=== PATIENT | female | born 1975 | race Caucasian/White ===

== ENCOUNTER 2019-10-10 13:58 | Inpatient (IN) | payer OTHER ==
[~2019-10-10] VITALS: Ht 160 cm; Wt 79.6 kg
[~2019-10-10 13:58] MED LIST: CHLORDIAZEPOXID10 M2 PO; HYDROCODONE BIT1 T11 PO; IBUPROFEN600 MG PO; MIRTAZAPINE15 M2 PO; NASAL SPRAY30 ML NS; NEURONTIN800 MG PO; SENNA DOCUSATE1 TAB PO; ZANTAC 150150 MG PO; ZYPREXA5 M1 PO
[2019-10-10 14:55] VITALS: BP 108/72
--- NOTE | 2019-10-10 14:55 | NUR ---
A 44, admitted to , under the services of INGRID Tidwell DO with a diagnosis of OPIATE AND ALCOHOL WITHDRAWAL. Chief complaint is OPIATE AND ALCOHOL WITHDRAWAL S/S.. Patient arrived via ambulatory from [place]. Monitor applied. Initial assessment completed. Vital signs taken and recorded. INGRID TIDWELL DO notified of admission to the unit. Orders received. See assessment for past medical history, medications and allergies. Patient and/or family oriented to unit. [facility] visitation policy reviewed. Clothing/patient valuable form completed. TATI ARIZMENDI
--- NOTE | 2019-10-10 15:10 | NUR ---
PATIENT MEETS [facility]. CINA=16, CIWA=20, CIWA(B) IS 30. PATIENT IS WANTING TO FOLLOW UP WITH [facility] FOR OUTPATIENT TREATMENT. BARRON WHELAN B.A. SEISMOGRAPH HELPER
[2019-10-10 15:48] LABS: BASO # 0.1 10*3/uL (0.0-0.1); EOS # 0.5 10*3/uL (0.0-0.4); EOS % 8.1 % (1.0-4.0); HEMATOCRIT 34.3 % (37.0-47.0); HEMOGLOBIN 9.2 g/dl (12.0-16.0); LYMPH # 1.2 10*3/uL (1.3-4.4); LYMPH % 18.3 % (27.0-41.0); MEAN CELL VOLUME 69.7 fl (81.0-99.0); MEAN CORPUSCULAR HGB 18.7 pg (27.0-31.0); MEAN CORPUSCULAR HGB CONC 26.8 g/dl (33.0-37.0); MEAN PLATELET VOLUME 10.6 fl (9.6-12.3); MONO # 0.6 10*3/uL (0.1-1.0); MONO % 9.2 % (3.0-9.0); NEUT % 63.1 % (47.0-73.0); PLATELET COUNT AUTOMATED 253 10*3/uL (130-400); RED BLOOD COUNT 4.92 10*6/uL (4.10-5.10); RED CELL DISTRI WIDTH 21.2 % (0-14.5); WHITE BLOOD COUNT 6.3 10*3/uL (4.8-10.8)
[2019-10-10 15:58] LABS: URINE AMPHETAMINES < 1000 (1000ng/ml); URINE BARBITURATES < 200 (200ng/ml); URINE BENZODIAZEPINES < 200 (200ng/ml); URINE CANNABINOIDS (THC) > 50 (50ng/ml); URINE COCAINE > 300 (300ng/ml); URINE METHADONE < 300 (300ng/ml); URINE OPIATES > 300 (300ng/ml); URINE PHENCYCLIDINE < 25 (25ng/ml)
[2019-10-10 15:58] LABS: INTERNATIONAL NORM RATIO 0.9 (2.0-3.5)
[2019-10-10 16:00] VITALS: BP 107/60
[2019-10-10 16:01] LABS: BILIRUBIN NEGATIVE (NEGATIVE); BLOOD NEGATIVE (NEGATIVE); CLARITY CLEAR (CLEAR); COLOR YELLOW (YELLOW); GLUCOSE NEGATIVE (NEGATIVE); KETONE NEGATIVE (NEGATIVE); LEUKO ESTERASE NEGATIVE (NEGATIVE); NITRITE NEGATIVE (NEGATIVE); PH 6.5 (5.0-9.0); UROBILINOGEN 0.2 E.U./dl (0.2-1.0)
[2019-10-10 16:02] LABS: EPITHELIAL CELLS 21-30; WBC 0-2 wbc/hpf (0-5)
[2019-10-10 16:02] LABS: ALBUMIN 3.5 gm/dl (3.1-4.5); ALKALINE PHOSPHATASE 121 U/L (45-117); BUN 8 mg/dl (7-24); CHLORIDE 108 mmol/L (98-107); CREATININE 0.92 mg/dL (0.55-1.02); POTASSIUM 3.9 mmol/L (3.5-5.1); SGOT/AST 19 IU/L (3-35); SGPT/ALT 27 U/L (12-78); SODIUM 140 mmol/L (136-145); TOTAL PROTEIN 7.2 gm/dL (6.4-8.2)
[2019-10-10 16:13] LABS: BETA-HCG, QUANT < 1.0 mIU/mL (1-3); ETHYL ALCOHOL < 3.0 mg/dl (<3)
--- NOTE | 2019-10-10 16:27 | NUR ---
PT GIVEN IV ZOFRAN, BENTYL, AND VISTARIL FOR C/O NAUSEA, STOMACH CRAMPS, AND ANXIETY. WILL MONITOR FOR EFFECTIVENESS.
--- NOTE | 2019-10-10 17:18 | NUR ---
PT STATES THAT SHE IS HAVING INCREASED ANXIETY AND FEELS "SHAKY". ATIVAN 1 MG GIVEN VIA IV AT THIS TIME. WILL MONITOR FOR EFFECTIVENESS. MVI BAG INFUSING. PT SITTING UP IN BED WATCHING TELEVISION. PT STATES THAT SHE HAS ORDERED DINNER AND WILL TRY TO EAT SOMETHING ALTHOUGH SHE HAS A POOR APPETITE. WILL MONITOR. CALL LIGHT IN REACH, SAFETY MEASURES IN PLACE. PT ENCOURAGED TO USE CALL LIGHT FOR ANY NEEDS.
[2019-10-10] MEDS ORDERED: TOPIRAMATE50 M2 PO (17:41)
[2019-10-10] MEDS ORDERED: VENLAFAXINE HY150 M2 PO (17:41)
[2019-10-10] MEDS ORDERED: VRAYLAR1.5 MG PO (17:42)
[2019-10-10] MEDS ORDERED: PROVENTIL HFA6.7 GM INH (17:43)
[2019-10-10] MEDS ORDERED: GABAPENTIN600 MG PO (17:43)
--- NOTE | 2019-10-10 17:46 | NUR ---
PT MED REC UPDATED PER MEDICATION CLAIM HISTORY FROM [facility] P[facility]ED UP IN JUNE OF 2019. DR ALARCON AWARE OF THIS.
--- NOTE | 2019-10-10 18:29 | NUR ---
PT LETHARGIC AT THIS TIME. PT AROUSES EASILY BUT FALLS BACK TO SLEEP QUICKLY. RESPIRATIONS EASY AND UNLABORED. PT REFUSES TO TAKE SUBUTEX AND LIBRIUM SCHEDULED AT 1800. WILL CONTINUE TO MONITOR PT. ALL SAFETY MEASURES IN PLACE FOR PT. CALL LIGHT IN REACH. DR ALARCON NOTIFIED OF THIS.
[2019-10-10 20:00] VITALS: BP 108/67
[2019-10-11] VITALS: BP 100/50
--- NOTE | 2019-10-11 03:21 | NUR ---
24 HOUR CHART CHECK COMPLETE.
--- NOTE | 2019-10-11 06:50 | NUR ---
ATIVAN, MOTRIN, BENTYL, AND REQUIP ADMINISTERED AT THIS TIME FOR PT C/O ANXIETY/SHAKINESS, MUSCLE CRAMPS, GENERALIZED PAIN/DISCOMFORT AND STOMACH UPSET. WILL CONTINUE TO MONITOR.
[2019-10-11 07:41] VITALS: BP 150/56
--- NOTE | 2019-10-11 08:55 | NUR ---
Patient sleeping. Responding to scheduled medications with fewer complaints of pain and anxiety.
[2019-10-11 12:00] VITALS: BP 144/84
[2019-10-11 16:00] VITALS: BP 148/87
--- NOTE | 2019-10-11 16:30 | NUR ---
Patient resting. Responding to scheduled medications with fewer complaints of pain and anxiety.
--- NOTE | 2019-10-11 17:40 | NUR ---
PT GIVEN PO ROBAXIN AND BENTYL PER PRN ORDER FOR C/O MUSCLE ACHES AND STOMACH CRAMPS. WILL MONITOR EFFECTIVENESS.
[2019-10-11 20:00] VITALS: BP 156/95
--- NOTE | 2019-10-11 22:10 | NUR ---
TRAZADONE, REQUIP, AND MOTRIN ADMINISTERED AT THIS TIME. PT C/O GENERALIZED MUSCLE ACHES/CRAMPS. WILL MONITOR.
--- NOTE | 2019-10-11 23:21 | NUR ---
PT RESTING AT THIS TIME. NO SIGNS OF DISCOMFORT OR DISTRESS NOTED.
[2019-10-12] VITALS: BP 147/84
--- NOTE | 2019-10-12 07:59 | NUR ---
Patient resting. Responding to scheduled medications with fewer complaints of pain and anxiety.
[2019-10-12 08:00] VITALS: BP 158/86
--- NOTE | 2019-10-12 09:31 | NUR ---
PT GIVEN PO REQUIP, ROBAXIN AND BENTYL PER PRN ORDER FOR C/O RESTLESS LEGS, MUSCLE ACHES AND STOMACH CRAMPS. WILL MONITOR EFFECTIVENESS. CALL LIGHT WITHIN REACH.
--- NOTE | 2019-10-12 10:50 | NUR ---
Patient resting. Responding to scheduled medications with fewer complaints of pain and anxiety.
[2019-10-12 12:00] VITALS: BP 155/86
[2019-10-12 16:00] VITALS: BP 149/73
--- NOTE | 2019-10-12 18:00 | NUR ---
Patient displaying withdrawal symptoms, including: irritability, anxiousness, restlessness and agitation, complicated by impulsive behavior. Patient scores a 5 on the withdrawal scale. Scheduled/PRN medications provided, doctor notified of patient's agitation and AMA potential. Will continue to monitor medication effectiveness.
--- NOTE | 2019-10-12 19:48 | NUR ---
PATIENT RESTING IN BED. DENIES NEEDS. STATES SHE IS "VERY TIRED". LIBRIUM TAKEN WITHOUT DIFFICULTY. REMINDED TO NOT LEAVE THE FLOOR. VERBALIZED UNDERSTANDING. BED IN LOWEST POSITION, CALL LIGHT IN REACH
[2019-10-12 20:00] VITALS: BP 141/85
--- NOTE | 2019-10-12 21:35 | NUR ---
MEDICATED WITH PRN REQUIP FOR C/O RESTLESS LEGS. WILL MONITOR
[2019-10-13] VITALS: BP 146/83
[2019-10-13 06:20] LABS: BASO # 0.1 10*3/uL (0.0-0.1); BASO % 0.7 % (0.0-1.0); EOS # 0.1 10*3/uL (0.0-0.4); EOS % 0.7 % (1.0-4.0); HEMATOCRIT 42.2 % (37.0-47.0); HEMOGLOBIN 11.5 g/dl (12.0-16.0); LYMPH # 1.9 10*3/uL (1.3-4.4); LYMPH % 22.5 % (27.0-41.0); MEAN CORPUSCULAR HGB 18.3 pg (27.0-31.0); MEAN CORPUSCULAR HGB CONC 27.3 g/dl (33.0-37.0); MEAN PLATELET VOLUME 10.4 fl (9.6-12.3); MONO # 0.7 10*3/uL (0.1-1.0); MONO % 7.7 % (3.0-9.0); NEUT # 5.8 10*3/uL (2.3-7.9); NEUT % 68.2 % (47.0-73.0); PLATELET COUNT AUTOMATED 307 10*3/uL (130-400); RED CELL DISTRI WIDTH 22.1 % (0-14.5); WHITE BLOOD COUNT 8.5 10*3/uL (4.8-10.8)
[2019-10-13 06:25] LABS: CREATININE 0.94 mg/dL (0.55-1.02)
--- NOTE | 2019-10-13 07:30 | NUR ---
PT SET OFF BED ALARM AT THIS TIME. PATIENT VERY UNSTEADY GETTING TO BATHROOM. DIFFICULT TO UNDERSTAND WHEN TALKING. UPON ASSESSMENT, LUNGS CLEAR T/O, DENIES SOB, C/O SOME ABD CRAMPING, BSX4 QUADS. NO EDEMA. CALL LIGHT IS WITHIN REACH. NO FURTHER NEEDS AT THIS TIME. BED ALARM IN PLACE.
--- NOTE | 2019-10-13 09:30 | NUR ---
PATIENT C/O ABDOMINAL CRAMPING AT THIS TIME AND MEDICATED WITH PRN BENTYL PER ORDER. WILL MONITOR.
--- NOTE | 2019-10-13 10:44 | NUR ---
PT REFUSING TO WEAR ENDOSCOPE TECHNICIAN AT THIS TIME.
[2019-10-13 12:00] VITALS: BP 140/86
--- NOTE | 2019-10-13 13:10 | NUR ---
PATIENT LEAVING AGAINST MEDICAL ADVICE. NOTIFIED . PRO DISCONTINUED.
--- NOTE | 2019-10-13 14:36 | NUR ---
PT TAKEN OUT BY WHEELCHAIR AT THIS TIME. HEPLOCK HAS BEEN REMOVED.
== END 2019-10-13 14:36 | disposition left against medical advice (07) | DRG 770 ==
LOC: 5E 13:58
PROVIDERS: Internal Medicine; ADMIT Family Medicine
DX: F11.23 Opioid dependence with withdrawal (principal); F17.210 Nicotine dependence, cigarettes, uncomplicated; F14.23 Cocaine dependence with withdrawal; F13.239 Sedative, hypnotic or anxiolytic dependence with withdrawal, unspecified; Z53.29 Procedure and treatment not carried out because of patient's decision for other reasons; F12.23 Cannabis dependence with withdrawal; F10.10 Alcohol abuse, uncomplicated; F32.9 Major depressive disorder, single episode, unspecified; F41.9 Anxiety disorder, unspecified; Z98.891 History of uterine scar from previous surgery; Z82.49 Family history of ischemic heart disease and other diseases of the circulatory system; Z81.3 Family history of other psychoactive substance abuse and dependence; Z79.899 Other long term (current) drug therapy; F19.10 Other psychoactive substance abuse, uncomplicated

== ENCOUNTER 2020-01-13 11:56 | Inpatient (IN) | payer OTHER ==
[~2020-01-13] VITALS: Ht 157.4 cm; Wt 72.6 kg
[~2020-01-13 11:56] MED LIST changes: +GABAPENTIN600 MG PO; +PROVENTIL HFA6.7 GM INH; +TOPIRAMATE50 M2 PO; +VENLAFAXINE HY150 M2 PO; +VRAYLAR1.5 MG PO
[2020-01-13 13:30] VITALS: BP 104/77
--- NOTE | 2020-01-13 13:31 | NUR ---
PATIENT MEETS [facility]. CINA=17, CIWA=19, CIWA(B) IS 37. PATIENT IS GOING TO FOLLOW UP WITH [facility] FOR HER AFTERCARE PLAN. BARRON WHELAN B.A. PIPE SMOKING MACHINE OPERATOR
--- NOTE | 2020-01-13 13:55 | NUR ---
44 year old FEMALE admitted to room # 412 for stabilization. Reports an addiction to ALCOHOL (LAST USE LAST NIGHT) 1/5TH/DAY, HEROINE (SNORTS) $2O/DAY, SMOKES CRACK COCAINE DAILY AND METHADONE 65MG DAILY FROM A CLINIC, XANAX PIECES WHEN AVAILABLE (LAST USED YESTERDAY) HEROINE AND CRACK LAST used 7 hours prior to admission. Noncompliant with admission procedure. Patient drowsy, falling asleep during assessment, states tired, up all night last night, not able to focus eyes on nurse during the interview. See assessment forms for additional information about patient status.
[2020-01-13] MEDS ORDERED: [UNRECOGNIZED DRUG - OTHER] PO (14:15)
[2020-01-13] MEDS ORDERED: AMANTADINE HCL100 M1 PO (14:20)
--- NOTE | 2020-01-13 14:54 | NUR ---
ADMINISTERED NARCAN X 1 ORDERED FOR LETHARGY. PATIENT AWOKE IMMEDIATELY, HAVING JERKING MOVEMENTS.
[2020-01-13 15:14] LABS: BASO # 0.1 10*3/uL (0.0-0.1); BASO % 0.6 % (0.0-1.0); EOS % 0.2 % (1.0-4.0); HEMATOCRIT 39.6 % (37.0-47.0); LYMPH % 23.9 % (27.0-41.0); MEAN CELL VOLUME 71.9 fl (81.0-99.0); MEAN CORPUSCULAR HGB 19.6 pg (27.0-31.0); MEAN CORPUSCULAR HGB CONC 27.3 g/dl (33.0-37.0); MEAN PLATELET VOLUME 10.3 fl (9.6-12.3); MONO # 0.7 10*3/uL (0.1-1.0); MONO % 8.9 % (3.0-9.0); NEUT # 5.4 10*3/uL (2.3-7.9); NEUT % 66.2 % (47.0-73.0); PLATELET COUNT AUTOMATED 275 10*3/uL (130-400); RED BLOOD COUNT 5.51 10*6/uL (4.10-5.10); WHITE BLOOD COUNT 8.2 10*3/uL (4.8-10.8)
[2020-01-13 15:20] LABS: BILIRUBIN NEGATIVE (NEGATIVE); BLOOD NEGATIVE (NEGATIVE); CLARITY SL CLOUDY (CLEAR); COLOR STRAW (YELLOW); GLUCOSE NEGATIVE (NEGATIVE); KETONE NEGATIVE (NEGATIVE)
[2020-01-13 15:21] LABS: LEUKO ESTERASE 2+ (NEGATIVE); NITRITE NEGATIVE (NEGATIVE); URINE AMPHETAMINES < 1000 (1000ng/ml); URINE BARBITURATES < 200 (200ng/ml); URINE BENZODIAZEPINES < 200 (200ng/ml); URINE CANNABINOIDS (THC) > 50 (50ng/ml); URINE COCAINE > 300 (300ng/ml); URINE METHADONE > 300 (300ng/ml); URINE OPIATES > 300 (300ng/ml); UROBILINOGEN 0.2 E.U./dl (0.2-1.0)
[2020-01-13 15:22] LABS: WBC 16-20 wbc/hpf (0-5)
[2020-01-13 15:23] LABS: BACTERIA 1+
[2020-01-13 15:23] LABS: INTERNATIONAL NORM RATIO 0.9 (2.0-3.5)
[2020-01-13 15:29] LABS: URINE PHENCYCLIDINE < 25 (25ng/ml)
[2020-01-13 15:31] LABS: ALBUMIN 3.9 gm/dl (3.1-4.5); ALKALINE PHOSPHATASE 109 U/L (45-117); BUN 8 mg/dl (7-24); CHLORIDE 109 mmol/L (98-107); CREATININE 0.85 mg/dL (0.55-1.02); POTASSIUM 4.7 mmol/L (3.5-5.1); SGOT/AST 16 IU/L (3-35); SGPT/ALT 21 U/L (12-78); SODIUM 140 mmol/L (136-145); TOTAL PROTEIN 7.7 gm/dL (6.4-8.2)
[2020-01-13 15:35] LABS: ETHYL ALCOHOL < 3.0 mg/dl (<3)
--- NOTE | 2020-01-13 15:48 | NUR ---
ADMINISTERED PO VISTARIL FOR ANXIETY, STARTED PO LIBRIUM AND SL SUBUTEX FOR WITHDRAWAL SYMPTOMS SCHEDULED AT THIS TIME, ALSO STARTING IVF'S WITH NSS ORDERED.
[2020-01-13 16:00] VITALS: BP 134/73
--- NOTE | 2020-01-13 18:55 | NUR ---
MEDICATED WITH PRN IV ATIVAN; PATIENT HAVING JERKING TREMORS, ANXIOUS, ASKING FOR THE MEDICATION REPEATED TIMES, SITTING UP AND DOWN IN BED. SPEECH REMAINS SLOW AND MUMBLED.
--- NOTE | 2020-01-13 19:59 | NUR ---
PATIENT HAVING JERKING MOVEMENTS. LIBRIUM GIVEN PER ORDER WITH WATER. VITALS WNL. EATING SNACK IN BED CURRENTLY, EYES CLOSED. IVF INFUSING PER ORDER. BED IN LOW, LOCKED POS, CALL LIGHT IN REACH.
[2020-01-13 20:00] VITALS: BP 126/80
--- NOTE | 2020-01-13 20:34 | NUR ---
PATIENT STANDING BESIDE BED, MUMBLING ABOUT WITHDRAWALS. ASSISTED BACK INTO BED. ORIENTED, SLOW SPEECH. RESTING ON LT SIDE. NO JERKING MOVEMENT NOTICED. BED IN LOWEST, LOCKED POS, CALL LIGHT IN REACH. IVF INFUSING PER ORDER.
--- NOTE | 2020-01-13 21:44 | NUR ---
SCHEDULED SUBUTEX GIVEN AT THIS TIME. PATIENT SLEEPING AND AWAKENS EASILY, STATES NAME AND . HAS NO C/O. IVF INFUSING; PT BACK TO SLEEP. BED IN LOWEST, LOCKED POS, CALL LIGHT IN REACH.
[2020-01-14] VITALS: BP 157/78
--- NOTE | 2020-01-14 01:28 | NUR ---
SCHEDULED LIBRIUM GIVEN AT THIS TIME, PT BACK TO SLEEP. PROVIDED WITH ADDITIONAL BLANKETS PER REQUEST.
[2020-01-14 08:00] VITALS: BP 122/76
--- NOTE | 2020-01-14 09:14 | NUR ---
MEDICATED WITH PRN PO BENTYL AND ZOFRAN FOR ABDOMINAL CRAMPS AND NAUSEA, ROBAXIN FOR MUSCLE CRAMPS, MOTRIN AND TYLENOL FOR BODY ACHES, REQUIP FOR RESTLESS LEGS, AND VISTARIL FOR ANXIETY. ALSO ADMINISTERED SCHEDULED LIBRIUM FOR WITHDRAWAL SYMPTOMS ORDERED.
--- NOTE | 2020-01-14 10:00 | NUR ---
Patient resting. Responding to scheduled and prn medications with fewer complaints of pain and anxiety.
[2020-01-14 12:00] VITALS: BP 128/86
--- NOTE | 2020-01-14 12:09 | NUR ---
[place] STAFF IN TO SEE PATIENT. PATIENT WAS ASLEEP. PATIENT'S AFTERCARE PLAN REMAINS THE SAME. [facility] STAFF WILL FOLLOW BACK UP WITH PATIENT. BARRON WHELAN B.A. SENIOR CHEMICAL ENGINEER
[2020-01-14 16:00] VITALS: BP 144/89
--- NOTE | 2020-01-14 19:55 | NUR ---
PATIENT ASSESSMENT COMPLETED AT THIS TIME WITHOUT INCIDENT, A&O X3, MUMBLES BUT DOES SPEAK CLEARLY WHEN PROMPTED. DENIES ANY DISTRESS AT THIS TIME, CALL LIGHT WITHIN REACH, WILL CONTINUE TO MONITOR.
[2020-01-14 20:00] VITALS: BP 134/75
[2020-01-15] VITALS: BP 107/81
[2020-01-15 08:00] VITALS: BP 136/94
--- NOTE | 2020-01-15 08:17 | NUR ---
pt resting in bed eyes closed. drowsy. des michele in to see pt will monitor
[2020-01-15 12:00] VITALS: BP 122/70
--- NOTE | 2020-01-15 12:15 | NUR ---
PATIENT HAS A SCHEDULED APPOINTMENT WITH [facility] ON SUNDAY, December AT 9AM. PATIENT IS WANTING TO FOLLOW BACK UP WITH HER MEDICATION-ASSISTED TREATMENT. BARRON WHELAN B.A. INDEPENDENT FREIGHT AGENT
--- NOTE | 2020-01-15 12:41 | NUR ---
PT MEDICATED WITH VISTARIL FOR ANXIETY. PT STATES SHE WANTS TO LEAVE . SUSANNA VILLAREAL NOTIFIED
--- NOTE | 2020-01-15 13:49 | NUR ---
PT LEFT AMA . SUSANNA VILLAREAL NOTIFIED , AND BARRON TELLO [facility] NOTIFIED
== END 2020-01-15 13:49 | disposition left against medical advice (07) | DRG 770 ==
LOC: 4E 11:56
PROVIDERS: Registered Nurse; ADMIT Internal Medicine
DX: F11.23 Opioid dependence with withdrawal (principal); F10.239 Alcohol dependence with withdrawal, unspecified; F14.23 Cocaine dependence with withdrawal; F12.10 Cannabis abuse, uncomplicated; F13.10 Sedative, hypnotic or anxiolytic abuse, uncomplicated; F31.9 Bipolar disorder, unspecified; Z53.29 Procedure and treatment not carried out because of patient's decision for other reasons; F41.9 Anxiety disorder, unspecified; Z82.49 Family history of ischemic heart disease and other diseases of the circulatory system; Z79.899 Other long term (current) drug therapy

== ENCOUNTER → 2022-01-13 | Outpatient (CLI) | payer OTHER ==
[~2022-01-13] MED LIST changes: +AMANTADINE HCL100 M1 PO; +[UNRECOGNIZED DRUG - OTHER] PO
[2022-01-13 08:56] LABS: ALKALINE PHOSPHATASE 74 U/L (45-117); BUN 9 mg/dl (7-24); CHLORIDE 109 mmol/L (98-107); CREATININE 0.81 mg/dL (0.55-1.02); SGOT/AST 9 IU/L (3-35); SGPT/ALT 19 U/L (12-78); SODIUM 138 mmol/L (136-145); TOTAL PROTEIN 7.7 gm/dL (6.4-8.2)
[2022-01-14 08:08] LABS: HEPATITIS B SURFACE AG Negative (Negative)
== END | disposition home or self-care (01) ==
LOC: LAB 08:10
PROVIDERS: ATTEND Registered Nurse
DX: F11.10 Opioid abuse, uncomplicated (principal)